=== PATIENT | female | born 1965 | race Caucasian/White ===

== ENCOUNTER 2018-05-30 20:08 | Emergency (ER) | payer OTHER ==
[2018-05-30 20:49] VITALS: BP 111/78
[2018-05-30] MEDS ORDERED: Lidocaine 1% MPF wEPI 200,000* 30 ML SDV INJ ONE (21:15)
[2018-05-30] MEDS ORDERED: Tetan/Diph/Pertus SYR(Tdap)* 0.5 ML SYR(BOOSTRIX) use SYR IM ONE (21:21)
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
== END 2018-05-30 22:00 | disposition home or self-care (01) ==
LOC: UCEAST 20:08
DX: S01.511A Laceration without foreign body of lip, initial encounter (principal); W26.8XXA Contact with other sharp object(s), not elsewhere classified, initial encounter; Z87.891 Personal history of nicotine dependence; Y92.9 Unspecified place or not applicable
CPT/HCPCS: 12011; 90715; 99212; G0463; J2001